=== PATIENT | female | born 1990 | race African-American/Black ===

== ENCOUNTER 2017-06-05 03:47 | Emergency (ER) | payer OTHER ==
[~2017-06-05] VITALS: Ht 170.2 cm; Wt 79.5 kg
[2017-06-05] MEDS ORDERED: BUPIVACAINE HCL/PF 0.25% 10 ML VIAL INJ ONE (04:15)
[2017-06-05 04:43] VITALS: BP 118/76
== END 2017-06-05 04:44 | disposition home or self-care (01) ==
LOC: EMS 03:48
DX: S02.5XXA Fracture of tooth (traumatic), initial encounter for closed fracture (principal); I10 Essential (primary) hypertension; F12.90 Cannabis use, unspecified, uncomplicated; X58.XXXA Exposure to other specified factors, initial encounter; Y93.89 Activity, other specified; Y92.89 Other specified places as the place of occurrence of the external cause; Y99.8 Other external cause status
CPT/HCPCS: 64400; 99284; J3490